=== PATIENT | male | born 1990 | race African-American/Black ===

== ENCOUNTER 2021-12-01 09:46 | Emergency (ER) | payer MEDICAID ==
[~2021-12-01] VITALS: Ht 190.5 cm; Wt 80.0 kg
[2021-12-01 09:51] VITALS: BP 130/64
[2021-12-01] MEDS ORDERED: FLUORESCEIN SODIUM 1MG/STRIP BOTHEYE ONE (10:45)
[2021-12-01] MEDS ORDERED: SODIUM CHLORIDE 0.9% IRRIG SOLUTION 1000ML IR ONE (10:45)
[2021-12-01] MEDS ORDERED: TETRACAINE 0.5% OPHTH DROPS 4ML BOTHEYE ONE (10:45)
[2021-12-01] MEDS ORDERED: SODIUM CHLORIDE 0.9% IRRIG SOL 1,000 ML IR NR (11:00)
[2021-12-01] MEDS ORDERED: OFLO5DRO3 EACHEYE (13:28)
== END 2021-12-01 13:20 | disposition home or self-care (01) ==
LOC: ER 09:46
DX: H57.89 Other specified disorders of eye and adnexa (principal)
CPT/HCPCS: 99283; 99284